=== PATIENT | male | born 1945 | race Caucasian/White ===

== ENCOUNTER 2020-08-15 14:17 | Emergency (ER) | payer MEDICARE, OTHER, SELFPAY ==
[2020-08-15] VITALS (8 sets, daily range): BP systolic 119–145; BP diastolic 60–73; PULSE 55–95; RESP 14–24; O2SAT 95–99; BMI 25.8
--- NOTE | 2020-08-15 14:28 | DI.CT.S_ITS ---
PROCEDURE: CT HEAD/BRAIN WO CON INDICATIONS: dizziness w/o h/o of trauma or diagnosis of vertigo TECHNIQUE: Noncontrast 4.5 mm thick angled axial sections acquired from the foramen magnum to the vertex, with coronal and sagittal reformats. For radiation dose reduction, the following was used: automated exposure control, adjustment of mA and/or kV according to patient size. COMPARISON: None. FINDINGS: Image quality: Excellent. CSF spaces: Basal cisterns are patent. No extra-axial fluid collections. The ventricles are symmetric in size and shape. Brain: No intracranial bleeds or masses. There is cerebral volume loss for age, with resultant ventricular and sulcal prominence. There are periventricular and deep white matter chronic small vessel ischemic changes. There is intracranial internal carotid artery atherosclerosis. Skull and face: Calvarium and visualized facial bones appear intact, without suspicious lesions. Sinuses: Visualized sinuses and mastoids are clear. 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 Focal encephalomalacia is chronic at the posterior left parietal lobe, in an area measures approximately 2 cm in maximal dimension. No hemorrhage or mass is found, no hydrocephalus is present. Dictated by: Henry Corcoran M.D. on 08/15/2020 at 14:47 Approved by: Henry Corcoran M.D. on 08/15/2020 at 14:47
--- NOTE | 2020-08-15 14:54 | ED_ITS ---
HPI - Neuro Symptoms/Deficit General Chief Complaint: Neuro Symptoms/Deficit Stated Complaint: vertigo Time Seen by Provider: 08/15/20 14:40 History of Present Illness HPI Narrative: Patient is a 5-year-old male who presents with dizziness. He said it started yesterday morning when he rolled over in bed to get out. His vision last 2 long just a couple of hours and then spontaneously went away. He said he felt better all afternoon and evening. However this morning he woke up with it again is and seems to be lasting longer. He feels a little nauseated but no vomiting. He has no numbness tingling or weakness. She is able to ambulate without difficulty. He has no chest pain or palpitations. He has no prior history of vertigo. He says he has a history of stroke but then says that he has had cardiac bypass. He does take aspirin daily. On Anticoagulants: No Related Data Previous Rx's Medication Instructions Recorded meclizine 25 mg tablet 25 mg PO TID PRN #10 tab 08/15/20 ondansetron 4 mg disintegrating 4 mg PO Q6H #10 tab 08/15/20 tablet Allergies Allergy/AdvReac Type Severity Reaction Status Date / Time No Known Drug Allergies Allergy Verified 08/15/20 15:20 Review of Systems Review of Systems Narrative: GENERAL: Denies chills, fatigue, malaise, fever, sweats, travel HEENT: Denies sinus pain, ear pain, sore throat, difficulty swallowing, neck pain RESPIRATORY: Denies dyspnea, cough, wheezing, hemoptysis, sputum. CARDIOVASCULAR: Denies chest pain, palpitations, orthopnea, edema GASTROINTESTINAL: Denies nausea, vomiting, abdominal pain, diarrhea, constipation, melena. : Denies dysuria, frequency, incontinence, hematuria, urinary retention, flank pain. MUSCULOSKELETAL: Denies weakness, joint pain, or bony pain SKIN: No rash, no erythema, no pruritus NEUROLOGIC: See HPI PSYCHIATRIC: No concerning psychosocial issues. 12 point review of systems is negative except for those stated above and HPI Hematologic/Lymphatic On Anticoagulants: No Patient History Medical History Coronary artery disease Exam Initial Vital Signs Initial Vital Signs: Vital Signs Pulse Rate 95 H 08/15/20 14:28 Respiratory Rate 16 08/15/20 14:28 Blood Pressure 145/68 H 08/15/20 14:28 Pulse Oximetry 97 08/15/20 14:28 GENERAL: Alert pleasant 75-year-old male in no acute distress. HEENT: Head atraumatic,EOMI, pupils reactive, mild nystagmus face symmetric, moist mucous membranes CARDIOVASCULAR: Regular rate and rhythm without murmurs, rubs or gallops. RESPIRATORY: Breath sounds equal bilaterally, no wheezes rales or rhonchi. ABDOMEN: Soft, nontender. Normoactive bowel sounds all 4 quadrants. No guarding or rebound. EXTREMITIES: Normal range of motion, no clubbing or edema. Neurovascularly intact NEUROLOGICAL: Alert and oriented x4.Normal gait and speech. Cranial nerves II through XII grossly intact. Good [id number], good [id number], strength equal bilaterally, no dysarthria or aphasia, sensation in tact to soft touch bilaterally, no visual changes, no facial droop SKIN: Warm, dry, no laceration, no petechiae, no rashes or lesions. Scores NIH Stroke Scale Level of Conciousness: Alert, keenly responsive Ask month/age: Answers both questions correctly. Open/close eyes, close hand: Performs both tasks correctly Best gaze horizontal: Normal Visual benítez: No visual loss Facial palsy: Normal symetrical movement Left arm drift: No drift for full 10 sec Right arm drift: No drift for full 10 sec Left leg drift: No drift for full 5 sec Right leg drift: No drift for full 5 sec Limb ataxia: Absent Sensory on face/arms/legs: Normal, no sensory loss Best language: No aphasia, normal Dysarthria: Normal Extinction or inattention: No abnormality Total NIH Stroke scale score: 0 Course Orders Ordered: ED Orders 08/15/20 14:27 EKG-12 Lead Stat 08/15/20 14:28 CT head/brain wo con Stat 08/15/20 14:50 Complete Blood Count AUTO DIFF Stat Comprehensive Metabolic Panel Stat Troponin I Stat Discontinued Medications Meclizine HCl (Meclizine Hcl 12.5 Mg Tablet) 25 mg PO NOW ONE Stop: 08/15/20 15:03 Last Admin: 08/15/20 15:21 Dose: 25 mg Documented by: QUENTIN Ondansetron HCl (Ondansetron 4 Mg/2 Ml Inj) 4 mg IV NOW ONE Stop: 08/15/20 15:03 Last Admin: 08/15/20 15:21 Dose: 4 mg Documented by: QUENTIN Vital Signs Vital signs: Vital Signs - 8 hr 08/15/20 14:28 08/15/20 14:47 08/15/20 14:49 Pulse Rate 95 H 61 60 Respiratory Rate 16 14 16 Blood Pressure 145/68 H 130/65 Pulse Oximetry 97 99 98 08/15/20 15:00 08/15/20 15:30 08/15/20 16:00 Pulse Rate 64 55 L 66 Respiratory Rate 22 17 15 Blood Pressure 138/73 119/60 133/62 Pulse Oximetry 96 96 96 08/15/20 16:31 08/15/20 16:32 Pulse Rate 56 L 56 L Respiratory Rate 24 Blood Pressure 140/66 140/66 Pulse Oximetry 96 95 MDM - Neuro Symptoms/Deficit Lab Data Result diagrams: 08/15/20 14:50 08/15/20 14:50 Labs: Lab Results 08/15/20 08/15/20 Range/Units 14:50 14:50 WBC 7.0 (4.5-11.0) X10^3/uL RBC 4.46 L (4.5-5.9) X10^6/uL Hgb 13.9 (13.5-17.5) g/dL Hct 41.0 (41-53) % MCV 91.9 (80-100) fL MCH 31.2 (26-34) PG MCHC 34.0 (30-36) % RDW 14.3 (11.6-14.8) % Plt Count 186 (150-400) X10^3/uL Neut % (Auto) 64.0 (50-75) % Lymph % (Auto) 21.0 L (25-40) % [place] % (Auto) 12.1 (3-14) % Eos % (Auto) 2.4 (2-4) % Baso % (Auto) 0.5 (0-2) % Neut # (Auto) 4500 (3734-5295) /uL Lymph # (Auto) 1500 (0133-2945) /uL [place] # (Auto) 900 (0-900) /uL Eos # (Auto) 200 (0-450) /uL Baso # (Auto) 0 (0-100) /uL Sodium 138 (137-145) mmol/L Potassium 4.5 (3.4-5.1) mmol/L Chloride 104 (98-107) mmol/L Carbon Dioxide 27 (22-32) mmol/L BUN 16 (9-20) mg/dL Creatinine 1.16 (0.66-1.25) mg/dL Estimated GFR > 60.0 (>60) mL/min BUN/Creatinine Ratio 13.8 (6-22) Glucose 82 (80-110) mg/dL Calcium 8.9 (8.4-10.2) mg/dL Total Bilirubin 0.5 (0.2-1.3) mg/dL AST 27 (17-59) IU/L ALT 24 (<50) IU/L Alkaline Phosphatase 98 (38-126) U/L Troponin I < 0.012 (0.01-0.034) ng/mL Total Protein 6.8 (6.3-8.2) g/dL Albumin 3.8 (3.5-5.0) g/dL Globulin 3.0 (1.7-4.1) g/dL Albumin/Globulin Ratio 1.3 (1.0-2.8) Imaging Data CT scan - head: Radiologist's Impression: PROCEDURE: CT HEAD/BRAIN WO CON INDICATIONS: dizziness w/o h/o of trauma or diagnosis of vertigo TECHNIQUE: Noncontrast 4.5 mm thick angled axial sections acquired from the foramen magnum to the vertex, with coronal and sagittal reformats. For radiation dose reduction, the following was used: automated exposure control, adjustment of mA and/or kV according to p atient size. COMPARISON: None. FINDINGS: Image quality: Excellent. CSF spaces: Basal cisterns are patent. No extra-axial fluid collections. The ventricles are symmetric in size and shape. Brain: No intracranial bleeds or masses. There is cerebral volume loss for age, with resultant ventricular and sulcal prominence. There are periventricular and deep white matter chronic small vessel ischemic changes. There is intracranial internal carotid artery atherosclerosis. Skull and face: Calvarium and visualized facial bones appear intact, without suspicious lesions. Sinuses: Visualized sinuses and mastoids are clear. 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 Focal encephalomalacia is chronic at the posterior left parietal lobe, in an area measures approximately 2 cm in maximal dimension. No hemorrhage or mass is found, no hydrocephalus is present. Dictated by: Henry Corcoran M.D. on 08/15/2020 at 14:47 Approved by: Henry Corcoran M.D. on 08/15/2020 at 14:47 ECG Data Interpretation: Normal sinus rhythm RO rate 106 p.r. interval 150 QRS [address] changes or T-wave inversions MDM Narrative Medical decision making narrative: Patient's sinus symptoms seem more consistent with vertigo. He actually is already feeling better now in the emergency department. His symptoms were improved with meclizine and Zofran. He was ambulatory all around the emergency department after the medication. Head CT is negative but does show some microvascular changes. I have explained to him I think do think this is vertigo low possibility of posterior stroke at this time. Discharge Plan Departure Patient Disposition: Home Clinical Impression: Vertigo Instructions: DI for Vertigo Activity Restrictions/Additional Instructions: *You have been diagnosed with vertigo *What to do: At this time I suspect that you have a vertigo. This should improve with medication and time. At this time we only control symptoms *Continue to take medications as directed Zofran 4 mg every 8 hours if needed for nausea or vomiting Meclizine 25 mg every 8 hours if needed for dizziness *Follow up with your primary care provider in 2-3 days *Return to ER if you should have increasing dizziness, weakness, numbness tingling or any new, worsening or concerning symptoms Prescriptions: New meclizine 25 mg tablet 25 mg PO TID PRN (Reason: dizziness) Qty: 10 RF: 0 ondansetron 4 mg tablet,disintegrating 4 mg PO Q6H Qty: 10 RF: 0
[2020-08-15 14:58] LABS: Add Manual Diff / Slide Review NO; Basophils Absolute Auto 0 /uL (0-100); Basophils Percent Auto 0.5 % (0-2); Eosinophils Absolute Auto 200 /uL (0-450); Eosinophils Percent Auto 2.4 % (2-4); Hemoglobin 13.9 g/dL (13.5-17.5); Lymphocytes Absolute Auto 1500 /uL (1100-4500); Mean Corpuscular Hemoglobin 31.2 PG (26-34); Mean Corpuscular Volume 91.9 fL (80-100); Monocytes Absolute Auto 900 /uL (0-900); Monocytes Percent Auto 12.1 % (3-14); Neutrophils Absolute Auto 4500 /uL (1500-7000); Platelet Count 186 X10^3/uL (150-400); Red Blood Cell Count 4.46 X10^6/uL (4.5-5.9); Red Cell Distribution Width 14.3 % (11.6-14.8)
--- NOTE | 2020-08-15 14:58 | PC.NURSE ---
pt reports he is on a boat. today reports he gets dizzy with motion.minimal nausea.
[2020-08-15 15:10] LABS: Alanine Aminotransferase 24 IU/L (<50); Albumin 3.8 g/dL (3.5-5.0); Albumin Globulin Ratio 1.3 (1.0-2.8); Alkaline Phosphatase 98 U/L (38-126); Aspartate Aminotransferase 27 IU/L (17-59); BUN Creatinine Ratio 13.8 (6-22); Bilirubin Total 0.5 mg/dL (0.2-1.3); Blood Urea Nitrogen 16 mg/dL (9-20); Calcium 8.9 mg/dL (8.4-10.2); Carbon Dioxide 27 mmol/L (22-32); Chloride 104 mmol/L (98-107); Estimated Glomerular Filt Rate > 60.0 mL/min (>60); Glucose 82 mg/dL (80-110); HEMOLYSIS 23 (0-50); Potassium 4.5 mmol/L (3.4-5.1); Sodium 138 mmol/L (137-145); Total Protein 6.8 g/dL (6.3-8.2)
[2020-08-15 15:21] LABS: Troponin I < 0.012 ng/mL (0.01-0.034)
[2020-08-15] MEDS: MECLIZINE HCL 12.5 MG TABLET 25 MG PO (15:21)
[2020-08-15] MEDS: ONDANSETRON 4 MG/2 ML INJ IV (15:21)
== END 2020-08-15 17:19 | disposition home or self-care (01) ==
PROVIDERS: Emergency Provider Emergency Medicine
DX: R42 Dizziness and giddiness (principal)
CPT/HCPCS: 70450; 80053; 84484; 85025; 93005; 96374; 99284; J2405